=== PATIENT | male | born 1950 | race Caucasian/White ===

== ENCOUNTER 2017-08-18 11:23 | Emergency (ER) | payer MEDICARE ==
[~2017-08-18 11:23] MED LIST: Iopamidol 370 76% 100 ML VIAL ONE
[2017-08-18 11:57] LABS: #Basophils 0.1 thou/uL (0.0-0.2); #Eosinphils 0.2 thou/uL (0.0-0.7); #Neutrophils 6.7 thou/uL (1.40-6.50); %Basophils 1.2 % (0.0-1.0); %Eosinophils 2.8 % (0.0-10.0); %Lymphocytes 10.6 % (21.0-51.0); %Monocytes 10.9 % (0.0-10.0); %Neutrophils 74.5 % (42.0-75.0); Hemoglobin 14.3 g/dL (14.0-18.0); Mean Corpuscular HGB CONC 33.7 g/dL (32.0-36.0); Mean Corpuscular Hemoglobin 30.8 pg (27.0-31.0); Mean Corpuscular Volume 91.3 fl (80.0-94.0); Mean Platelet Volume 6.1 fL (7.4-10.4); Platelet Count 161 thou/uL (130-400); RBC Distribution Width 13.3 % (11.5-14.5); Red Blood Cell (RBC) Count 4.66 mill/uL (4.70-6.10)
[2017-08-18 12:06] LABS: INR-International Normal Ratio 1.2; PTT 30.2 SEC (22.9-36.1); Prothrombin Time 15.7 SEC (12.0-14.7)
[2017-08-18 12:16] LABS: ALT (SGPT) 65 U/L (8-55); AST (SGOT) 36 U/L (5-34); Albumin 3.6 g/dL (3.4-4.8); Alkaline Phosphatase 89 U/L (40-150); Anion Gap 14 mmol/L (10-20); BUN (Urea Nitrogen) 21 mg/dL (8.4-25.7); Bilirubin, Total 0.5 mg/dL (0.2-1.2); CK (CPK) 61 U/L (30-200); Calc. Creatinine Clearance 0 mL/min (70-130); Calcium 8.6 mg/dL (7.8-10.44); Carbon Dioxide 26 mmol/L (23-31); Chloride 108 mmol/L (98-107); Estimated GFR-MDRD 89; Glucose 87 mg/dL (80-115); Potassium 4.8 mmol/L (3.5-5.1); Protein, Total 5.6 g/dL (5.8-8.1); Sodium 143 mmol/L (136-145)
[2017-08-18 12:17] LABS: CKMB 2.3 ng/mL (0-6.6)
[2017-08-18 12:19] LABS: Troponin I 0.542 ng/mL (< 0.028)
--- NOTE | 2017-08-18 14:52 | RAD ---
TWO VIEWS CHEST: Date: 08-18-17 Provided Clinical History: Dyspnea. FINDINGS: Comparison is made with the study dated 05-27-17. The cardiac silhouette appears enlarged. Vascular calcification is noted involving the aortic arch. T here is a curvilinear metallic density overlying the expected location of the left atrium which is ne w with respect to the prior study and is of uncertain etiology. The lungs appear clear. There is blun ting of the right costophrenic angle without evidence for pleural fluid on the lateral view. IMPRESSION: Curvilinear metallic density overlies the expected region of the left atrium. The patient provides a history of recent heart surgery and this may be on the basis of that surgery. POS: RICKIE
--- NOTE | 2017-08-18 15:16 | CT ---
CTA THORAX WITH CONTRAST: (Computed Tomographic Angiography, chest(noncoronary) with contrast material, and image postprocessin g) (PE protocol) Date: 08-18-17 HISTORY: 66-year-old male with dyspnea. TECHNIQUE: IV injection of iodinated contrast: Isovue 370 Scan acquisition timing attempted to coincide with iodinated contrast bolus reaching maximal density in pulmonary arteries. 3D MIP reconstructions. FINDINGS: There are multiple tiny foci of gas in the subcutaneous fat superficial to the right anterolateral an d right lateral chest wall. In the soft tissues posterior to the right pectoralis major and minor mus cles, and lateral to the right rib cage, there is a 3.5 x 4 x 3.5 cm soft tissue attenuation mass, co nsistent with hematoma. There is surrounding fat stranding that represents edema. The edema extends t o the right intercostal muscles, which is contiguous with focal thickening of the right anterolateral pleura. The edema extends moderately large distances superiorly and inferiorly from this. There are numerous tiny foci of subcutaneous emphysema among the edema in the subcutaneous fat lateral to the r ight chest wall. There is cutaneous defect in the skin overlying the lower portion of the right later al chest wall. No displaced rib fracture is identified. There is a small right pleural effusion. Ther e is a rind of atelectatic lung abutting the posterior inferior pleural surface. There are mild strea ky densities at the lateral base of the right lung which could represent subsegmental atelectasis or scar. There is mild cardiomegaly with four chamber dilation, especially with dilation of the right at rium. Calcification of the coronary arteries, especially LAD. No thoracic aorta aneurysm or dissectio n. No evidence of pulmonary thromboembolism. No mediastinal lymphadenopathy. There is a metallic pros thetic ring at the mitral valve anulus. IMPRESSION: 1. Evidence of penetrating trauma to the right lateral chest wall. This includes subcutaneous emphyse ma, cutaneous defect, hematoma in the superficial soft tissues, and what appears to be a small right pleural hematoma. 2. No pulmonary thromboembolism. 3. Metallic, prosthetic mitral valve anulus. 4. Coronary arthrosclerotic disease. 5. Mild cardiomegaly, including right atrial chamber dilation. ADDENDUM: It has been learned that the patient has had recent surgery at the right chest wall, which would acco unt for all of the findings described above in that location. rajani POS: RICKIE
--- NOTE | 2017-09-06 12:54 | EKG ---
Test Reason : Blood Pressure : / mmHG Vent. Rate : 059 BPM Atrial Rate : 059 BPM P-R Int : 146 ms QRS Dur : 084 ms QT Int : 466 ms P-R-T Axes : 070 011 048 degrees QTc Int : 461 ms Sinus bradycardia with sinus arrhythmia Otherwise normal ECG Confirmed by LUIGI TAMEZ DO ([id number]), design editor KAYLIN MCLAUGHLIN ([id number]) on 09/06/2017 12:54:19 PM Referred By: DR. TAMEZ Confirmed By:LUIGI TAMEZ DO
== END 2017-08-18 13:23 | disposition home or self-care (01) ==
LOC: SCSER 11:23
DX: R06.00 Dyspnea, unspecified (principal); Z98.890 Other specified postprocedural states; I48.91 Unspecified atrial fibrillation; I49.9 Cardiac arrhythmia, unspecified; E78.5 Hyperlipidemia, unspecified; I10 Essential (primary) hypertension; Z79.899 Other long term (current) drug therapy; Z79.82 Long term (current) use of aspirin
CPT/HCPCS: 36415; 71046; 71275; 80053; 82550; 82553; 83605; 83880; 84484; 85025; 85610; 85730; 93005

== ENCOUNTER 2022-12-03 15:01 | Outpatient (CLI) | payer MEDICARE | END 2022-12-03 15:02 | disposition home or self-care (01) | LOC: SCSRAD 15:01 | PROVIDERS: ATTEND Family Medicine | DX: R06.02 Shortness of breath (principal); U07.1 COVID-19; R05.1 Acute cough | CPT/HCPCS: 71046; 87635 ==

== ENCOUNTER 2023-08-23 10:45 | Inpatient (IN) | payer MEDICARE ==
[2023-08-23] MEDS ORDERED: Iopamidol-370 76% 500 ML MDV (1 ML CHARGE) ONE (11:06)
[2023-08-23 11:31] LABS: #Basophils Less than 0.03 10x3/uL (0.0-0.2); #Eosinphils Less than 0.03 10x3/uL (0.0-0.7); %Basophils 0.2 % (0.0-1.0); %Lymphocytes 9.1 % (21.0-51.0); %Monocytes 10.4 % (0.0-10.0); Hematocrit 42.6 % (42.0-52.0); Hemoglobin 13.9 g/dL (14.0-18.0); Mean Corpuscular HGB CONC 32.6 g/dL (32.0-36.0); Mean Corpuscular Volume 95.1 fL (78.0-98.0); Mean Platelet Volume 10.5 fL (7.4-10.4); Platelet Count 127 10x3/uL (130-400); RBC Distribution Width 14.6 % (11.5-14.5); Red Blood Cell (RBC) Count 4.48 mill/uL (4.70-6.10)
[2023-08-23 11:36] LABS: Globulin 2.6 g/dL (2.4-3.5)
[2023-08-23 11:37] LABS: INR-International Normal Ratio 1.3; Prothrombin Time 15.9 sec (12.0-14.7)
[2023-08-23 11:38] LABS: PTT 29.4 sec (22.9-36.1)
[2023-08-23 11:39] LABS: D-Dimer Test 1.15 mcg/mL (0.27-0.43)
[2023-08-23 11:41] LABS: ALT (SGPT) 31 U/L (8-55); AST (SGOT) 17 U/L (5-34); Albumin 3.2 g/dL (3.4-4.8); Alkaline Phosphatase 91 U/L (40-110); Anion Gap 14 mmol/L (10-20); BUN (Urea Nitrogen) 23 mg/dL (8.4-25.7); Bilirubin, Total 1.5 mg/dL (0.2-1.2); Calc. Creatinine Clearance 0 mL/min (70-130); Calcium 8.8 mg/dL (7.8-10.44); Carbon Dioxide 25 mmol/L (23-31); Chloride 106 mmol/L (98-107); Estimated GFR 79; Glucose 129 mg/dL (83-110); Magnesium 2.1 mg/dL (1.6-2.6); Potassium 4.3 mmol/L (3.5-5.1); Protein, Total 5.8 g/dL (5.8-8.1); Sodium 141 mmol/L (136-145)
[2023-08-23 11:50] LABS: Actual Bicarbonate (HCO3v) 21.6 mEq/L (22-28); Analyzer IN Cardio ER; Calcium, Ionized (venous) 1.02 mmol/L (1.16-1.32); Chloride (VBG) 104 mmol/L (98-106); Hematocrit-VBG 42 % (42.0-52.0); Hemoglobin (Hb) 14.2 g/dL (12.6-17.4); Sodium 139 mmol/L (133-146); pH (venous) 7.473 (7.32-7.43)
[2023-08-23] MEDS ORDERED: Ipratropium/Albuterol 3 ML NEB ONE (11:53)
[2023-08-23] MEDS ORDERED: methylPREDNISolone Sod Succ/PF 125 MG/2 ML VIAL ONE (11:53)
[2023-08-23 12:48] LABS: Bacteria/HPF None Seen HPF (None Seen); Bilirubin Negative (Negative); Blood, Urine 2+ (Negative); CAUTI Indications for Culture Alt mental st,lethar; Clarity Clear (Clear); Glucose, Urine (Dipstick) Normal (Negative); Ketone, Urine Negative (Negative); Leukocyte Negative Leu/uL (Negative); Nitrite Negative (Negative); Protein, Urine (Dipstick) Negative (Neg-Trace); Squamous Epithelial 0-3 HPF (0-3); Urobilinogen Normal mg/dL (Less than 2); WBC/HPF 0-3 HPF (0-3)
[2023-08-23 12:50] LABS: Urine Culture Reflex No No
[2023-08-23] MEDS ORDERED: Furosemide 40 MG (4 mL) VIAL ONE (13:13)
[2023-08-23] MEDS ORDERED: Ondansetron PF 4 MG/2 ML Vial IVP PRN (15:23)
[2023-08-23] MEDS ORDERED: Ondansetron ODT 4 MG TAB PO PRN (15:23)
[2023-08-23] MEDS ORDERED: Acetaminophen 325 MG TAB PO PRN (15:23)
[2023-08-23] MEDS ORDERED: Albuterol 200 PUFF INH INH PRN (15:38)
[2023-08-23 16:30] VITALS: BMI 34.2
[2023-08-23 18:13] LABS: Magnesium 2.2 mg/dL (1.6-2.6)
[2023-08-23] MEDS: Magnesium Oxide 250 MG TAB PO SCH (20:08)
[2023-08-24 04:01] LABS: #Basophils Less than 0.03 10x3/uL (0.0-0.2); #Eosinphils Less than 0.03 10x3/uL (0.0-0.7); %Basophils 0.1 % (0.0-1.0); %Lymphocytes 6.3 % (21.0-51.0); %Monocytes 5.1 % (0.0-10.0); %Neutrophils 88.1 % (42.0-75.0); Hematocrit 42.5 % (42.0-52.0); Hemoglobin 13.8 g/dL (14.0-18.0); Mean Corpuscular HGB CONC 32.5 g/dL (32.0-36.0); Mean Corpuscular Hemoglobin 31.4 pg (27.0-31.0); Mean Corpuscular Volume 96.8 fL (78.0-98.0); Mean Platelet Volume 10.7 fL (7.4-10.4); Platelet Count 137 10x3/uL (130-400); RBC Distribution Width 14.5 % (11.5-14.5); Red Blood Cell (RBC) Count 4.39 mill/uL (4.70-6.10)
[2023-08-24 04:32] LABS: Globulin 3.5 g/dL (2.4-3.5)
[2023-08-24 04:41] LABS: ALT (SGPT) 28 U/L (8-55); AST (SGOT) 31 U/L (5-34); Alkaline Phosphatase 89 U/L (40-110); Anion Gap 14 mmol/L (10-20); BUN (Urea Nitrogen) 22 mg/dL (8.4-25.7); Bilirubin, Total 1.6 mg/dL (0.2-1.2); Calc. Creatinine Clearance 103 mL/min (70-130); Calcium 8.9 mg/dL (7.8-10.44); Carbon Dioxide 25 mmol/L (23-31); Chloride 105 mmol/L (98-107); Estimated GFR 73; Glucose 141 mg/dL (83-110); Potassium 4.4 mmol/L (3.5-5.1); Protein, Total 6.5 g/dL (5.8-8.1); Sodium 140 mmol/L (136-145)
[2023-08-24] MEDS: Furosemide 40 MG (4 mL) VIAL SLOW IVP SCH ×2 (05:08→14:24)
[2023-08-24] MEDS: Enoxaparin 40 MG (0.4 mL) SYRINGE SC SCH (08:58)
[2023-08-24] MEDS: Atorvastatin Calcium 40 MG TAB PO SCH (08:59)
[2023-08-24] MEDS: Pantoprazole DR 40 MG TAB PO SCH (08:59)
[2023-08-24] MEDS: Aspirin 81 mg Enteric Coated Tablet PO SCH (08:59)
[2023-08-24] MEDS: Multivitamin W/ Minerals 1 TAB PO SCH (08:59)
[2023-08-24] MEDS: Allopurinol 300 MG TAB PO SCH (08:59)
[2023-08-24] MEDS: Senokot S 8.6-50 MG TAB PO PRN (14:28)
[2023-08-24] MEDS: Amiodarone 450 MG in Dextrose 5% in Water 250 ML IVPB SCH (15:53)
[2023-08-25 04:16] LABS: #Basophils Less than 0.03 10x3/uL (0.0-0.2); #Eosinphils Less than 0.03 10x3/uL (0.0-0.7); %Basophils 0.1 % (0.0-1.0); %Eosinophils 0.1 % (0.0-10.0); %Lymphocytes 10.5 % (21.0-51.0); %Monocytes 8.3 % (0.0-10.0); %Neutrophils 80.6 % (42.0-75.0); Hematocrit 44.9 % (42.0-52.0); Hemoglobin 14.4 g/dL (14.0-18.0); Mean Corpuscular HGB CONC 32.1 g/dL (32.0-36.0); Mean Corpuscular Hemoglobin 31.6 pg (27.0-31.0); Mean Corpuscular Volume 98.7 fL (78.0-98.0); Mean Platelet Volume 11.3 fL (7.4-10.4); Platelet Count 174 10x3/uL (130-400); RBC Distribution Width 14.7 % (11.5-14.5); Red Blood Cell (RBC) Count 4.55 mill/uL (4.70-6.10)
[2023-08-25 04:39] LABS: Anion Gap 15 mmol/L (10-20); BUN (Urea Nitrogen) 30 mg/dL (8.4-25.7); Calc. Creatinine Clearance 110 mL/min (70-130); Carbon Dioxide 31 mmol/L (23-31); Chloride 101 mmol/L (98-107); Estimated GFR 80; Glucose 98 mg/dL (83-110); Sodium 143 mmol/L (136-145)
[2023-08-26 04:35] LABS: #Basophils Less than 0.03 10x3/uL (0.0-0.2); %Basophils 0.1 % (0.0-1.0); %Eosinophils 1.4 % (0.0-10.0); %Lymphocytes 13.8 % (21.0-51.0); %Monocytes 10.9 % (0.0-10.0); %Neutrophils 73.4 % (42.0-75.0); Hematocrit 45.8 % (42.0-52.0); Hemoglobin 14.7 g/dL (14.0-18.0); Mean Corpuscular HGB CONC 32.1 g/dL (32.0-36.0); Mean Corpuscular Hemoglobin 31.3 pg (27.0-31.0); Mean Corpuscular Volume 97.4 fL (78.0-98.0); Mean Platelet Volume 10.1 fL (7.4-10.4); Platelet Count 176 10x3/uL (130-400); RBC Distribution Width 14.5 % (11.5-14.5)
[2023-08-26 05:02] LABS: Anion Gap 16 mmol/L (10-20); BUN (Urea Nitrogen) 31 mg/dL (8.4-25.7); Calc. Creatinine Clearance 119 mL/min (70-130); Calcium 8.9 mg/dL (7.8-10.44); Carbon Dioxide 31 mmol/L (23-31); Chloride 101 mmol/L (98-107); Estimated GFR 90; Glucose 98 mg/dL (83-110); Potassium 3.6 mmol/L (3.5-5.1); Sodium 144 mmol/L (136-145)
[2023-08-27 08:45] LABS: Anion Gap 18 mmol/L (10-20); BUN (Urea Nitrogen) 28 mg/dL (8.4-25.7); Calc. Creatinine Clearance 122 mL/min (70-130); Calcium 9.1 mg/dL (7.8-10.44); Carbon Dioxide 32 mmol/L (23-31); Chloride 98 mmol/L (98-107); Estimated GFR 91; Glucose 94 mg/dL (83-110); Potassium 3.5 mmol/L (3.5-5.1); Sodium 144 mmol/L (136-145)
[2023-08-27 09:33] LABS: #Basophils Less than 0.03 10x3/uL (0.0-0.2); %Basophils 0.2 % (0.0-1.0); %Eosinophils 1.4 % (0.0-10.0); %Lymphocytes 12.3 % (21.0-51.0); %Monocytes 10.1 % (0.0-10.0); %Neutrophils 75.8 % (42.0-75.0); Hematocrit 48.7 % (42.0-52.0); Hemoglobin 15.2 g/dL (14.0-18.0); Mean Corpuscular HGB CONC 31.2 g/dL (32.0-36.0); Mean Corpuscular Hemoglobin 30.3 pg (27.0-31.0); Mean Platelet Volume 10.5 fL (7.4-10.4); Platelet Count 164 10x3/uL (130-400); RBC Distribution Width 14.5 % (11.5-14.5); Red Blood Cell (RBC) Count 5.02 mill/uL (4.70-6.10)
[2023-08-27] MEDS: Amiodarone 200 MG TAB PO SCH (19:58)
[2023-08-28 04:51] LABS: #Basophils Less than 0.03 10x3/uL (0.0-0.2); %Basophils 0.2 % (0.0-1.0); %Eosinophils 0.7 % (0.0-10.0); %Lymphocytes 12.3 % (21.0-51.0); %Monocytes 10.9 % (0.0-10.0); %Neutrophils 75.5 % (42.0-75.0); Hematocrit 46.3 % (42.0-52.0); Hemoglobin 14.8 g/dL (14.0-18.0); Mean Corpuscular Hemoglobin 30.6 pg (27.0-31.0); Mean Corpuscular Volume 95.7 fL (78.0-98.0); Mean Platelet Volume 9.6 fL (7.4-10.4); Platelet Count 187 10x3/uL (130-400); RBC Distribution Width 13.9 % (11.5-14.5); Red Blood Cell (RBC) Count 4.84 mill/uL (4.70-6.10)
[2023-08-28 05:08] LABS: Anion Gap 17 mmol/L (10-20); BUN (Urea Nitrogen) 23 mg/dL (8.4-25.7); Calc. Creatinine Clearance 136 mL/min (70-130); Calcium 8.8 mg/dL (7.8-10.44); Carbon Dioxide 30 mmol/L (23-31); Chloride 98 mmol/L (98-107); Estimated GFR 94; Glucose 112 mg/dL (83-110); Potassium 3.2 mmol/L (3.5-5.1); Sodium 142 mmol/L (136-145)
[2023-08-28] MEDS: Potassium Chloride 20 MEQ TAB PO SCH (06:28)
[2023-08-28] MEDS: Potassium Chloride 20 MEQ in Premix 1 BAG IVPB SCH (06:28)
[2023-08-28 06:50] LABS: Magnesium 2.2 mg/dL (1.6-2.6)
[2023-08-28] MEDS: Empagliflozin 10 MG TAB PO SCH (08:16)
[2023-08-28 11:05] LABS: Anion Gap 12 mmol/L (10-20); BUN (Urea Nitrogen) 24 mg/dL (8.4-25.7); Calc. Creatinine Clearance 118 mL/min (70-130); Calcium 9.2 mg/dL (7.8-10.44); Carbon Dioxide 32 mmol/L (23-31); Chloride 100 mmol/L (98-107); Estimated GFR 91; Glucose 131 mg/dL (83-110); Potassium 3.9 mmol/L (3.5-5.1); Sodium 140 mmol/L (136-145)
[2023-08-29 04:07] LABS: #Basophils Less than 0.03 10x3/uL (0.0-0.2); %Basophils 0.2 % (0.0-1.0); %Eosinophils 1.4 % (0.0-10.0); %Lymphocytes 13.3 % (21.0-51.0); %Monocytes 10.2 % (0.0-10.0); %Neutrophils 74.4 % (42.0-75.0); Hematocrit 45.8 % (42.0-52.0); Hemoglobin 14.6 g/dL (14.0-18.0); Mean Corpuscular HGB CONC 31.9 g/dL (32.0-36.0); Mean Corpuscular Hemoglobin 30.1 pg (27.0-31.0); Mean Corpuscular Volume 94.4 fL (78.0-98.0); Mean Platelet Volume 9.8 fL (7.4-10.4); Platelet Count 185 10x3/uL (130-400); RBC Distribution Width 13.9 % (11.5-14.5); Red Blood Cell (RBC) Count 4.85 mill/uL (4.70-6.10)
[2023-08-29 04:24] LABS: Anion Gap 16 mmol/L (10-20); BUN (Urea Nitrogen) 26 mg/dL (8.4-25.7); Calc. Creatinine Clearance 121 mL/min (70-130); Calcium 8.9 mg/dL (7.8-10.44); Carbon Dioxide 30 mmol/L (23-31); Chloride 102 mmol/L (98-107); Estimated GFR 92; Glucose 102 mg/dL (83-110); Magnesium 2.3 mg/dL (1.6-2.6); Potassium 3.6 mmol/L (3.5-5.1); Sodium 144 mmol/L (136-145)
[2023-08-29] MEDS: Furosemide 40 MG TAB PO SCH (08:47)
[2023-08-29] MEDS ORDERED: PROPOFOL 200 MG/20 ML VIAL ONE (09:37)
[2023-08-30 05:19] LABS: Magnesium 2.5 mg/dL (1.6-2.6)
[2023-08-30 08:40] VITALS: TEMP 98.1
[2023-08-30] MEDS: Multivit, Therapeutic 1 TAB PO SCH (10:15)
[2023-08-30 12:25] VITALS: BP 165/104
== END 2023-08-30 14:48 | disposition home or self-care (01) | DRG 291 ==
LOC: ERS 10:45 → 2SW 15:53 → OBSVTOIN 08-25 09:48
PROVIDERS: ADMIT Internal Medicine; ATTEND Internal Medicine
PROC: 5A2204Z Restoration of Cardiac Rhythm, Single (ICD-10-PCS; principal; 2023-08-29)
DX: I11.0 Hypertensive heart disease with heart failure (principal); I50.33 Acute on chronic diastolic (congestive) heart failure; J96.01 Acute respiratory failure with hypoxia; I48.0 Paroxysmal atrial fibrillation; M10.9 Gout, unspecified; I25.10 Atherosclerotic heart disease of native coronary artery without angina pectoris; E66.9 Obesity, unspecified; G47.33 Obstructive sleep apnea (adult) (pediatric); E88.09 Other disorders of plasma-protein metabolism, not elsewhere classified; Z98.890 Other specified postprocedural states; Z88.2 Allergy status to sulfonamides; Z79.899 Other long term (current) drug therapy; Z68.33 Body mass index [BMI] 33.0-33.9, adult
CPT/HCPCS: 36415; 71045; 71275; 80048; 80053; 81001; 82805; 83735; 83880; 84443; 85025; 85379; 85610; 85730; 93005; 93010; 93306; 94760; 96374; 96375; J0282; J1650; J1940; J2704; J2930; J3480; J7070; J7620; Q9967

== ENCOUNTER 2023-09-19 16:00 | Outpatient (CLI) | payer OTHER | END 2023-09-19 16:01 | disposition home or self-care (01) | LOC: SLEEPLAB 16:00 | PROVIDERS: ATTEND Internal Medicine | DX: R06.02 Shortness of breath (principal); G47.33 Obstructive sleep apnea (adult) (pediatric); R09.02 Hypoxemia | CPT/HCPCS: 95800 ==

== ENCOUNTER 2023-10-30 16:00 | Outpatient (CLI) | payer MEDICARE | END 2023-10-30 16:01 | disposition home or self-care (01) | LOC: SLEEPLAB 16:00 | PROVIDERS: ATTEND Internal Medicine | DX: G47.33 Obstructive sleep apnea (adult) (pediatric) (principal); R09.02 Hypoxemia | CPT/HCPCS: 95811 ==

== ENCOUNTER 2024-02-04 08:00 | Day surgery (SDC) | payer MEDICARE ==
[2024-02-03 12:22] VITALS: BMI 32.5
[2024-02-04] MEDS ORDERED: PROPOFOL 80 ML ONE (09:01)
[2024-02-04] MEDS ORDERED: Lidocaine 2% PF 5 ML VIAL ONE (09:01)
[2024-02-04] MEDS ORDERED: GLYCOPYRROLATE/PF 0.2 MG/ML VIAL ONE (09:07)
[2024-02-04] MEDS ORDERED: PHENYLEPHRINE-NS 100 MCG/ML 10 ML SYRINGE ONE (09:40)
== END 2024-02-04 10:40 | disposition home or self-care (01) ==
LOC: SDC 08:00
PROVIDERS: ATTEND Internal Medicine Gastroenterology
PROC: 0DJD8ZZ Inspection of Lower Intestinal Tract, Via Natural or Artificial Opening Endoscopic (ICD-10-PCS; principal; 2024-02-04)
PROC: 0DJ08ZZ Inspection of Upper Intestinal Tract, Via Natural or Artificial Opening Endoscopic (ICD-10-PCS; 2024-02-04)
PROC: 0D750ZZ Dilation of Esophagus, Open Approach (ICD-10-PCS; 2024-02-04)
DX: Z12.11 Encounter for screening for malignant neoplasm of colon (principal); R13.19 Other dysphagia; Z86.0100 Personal history of colon polyps, unspecified; K57.30 Diverticulosis of large intestine without perforation or abscess without bleeding; K21.9 Gastro-esophageal reflux disease without esophagitis; I10 Essential (primary) hypertension; E78.00 Pure hypercholesterolemia, unspecified; J45.909 Unspecified asthma, uncomplicated; I48.91 Unspecified atrial fibrillation; Z79.82 Long term (current) use of aspirin; Z79.899 Other long term (current) drug therapy
CPT/HCPCS: 43235; 43450; G0105; J2704; J3490

== ENCOUNTER 2024-02-11 11:07 | Outpatient (CLI) | payer MEDICARE | END 2024-02-11 11:08 | disposition home or self-care (01) | LOC: RAD 11:07 | PROVIDERS: ATTEND Internal Medicine Gastroenterology | DX: R13.19 Other dysphagia (principal); K21.9 Gastro-esophageal reflux disease without esophagitis; I48.91 Unspecified atrial fibrillation; R06.02 Shortness of breath; Z86.0100 Personal history of colon polyps, unspecified | CPT/HCPCS: 74230 ==

== ENCOUNTER 2024-02-17 09:06 | Outpatient (CLI) | payer MEDICARE | END 2024-02-17 09:07 | disposition home or self-care (01) | LOC: RAD 09:06 | PROVIDERS: ATTEND Internal Medicine | DX: R06.00 Dyspnea, unspecified (principal) | CPT/HCPCS: 71046 ==

== ENCOUNTER 2025-03-11 14:00 | Inpatient (IN) | payer MEDICARE ==
[2025-03-16] MEDS ORDERED: Heparin 5,000 UNITS/ML VIAL ONE (06:35)
[2025-03-16] MEDS ORDERED: fentaNYL PF 100 MCG/2 ML SYRINGE ONE (07:23)
[2025-03-16] MEDS ORDERED: Ondansetron PF 4 MG/2 ML Vial ONE ×2 (07:24→10:17)
[2025-03-16] MEDS ORDERED: Lidocaine 1% PF 5 ML VIAL ONE (07:24)
[2025-03-16] MEDS ORDERED: Heparin 10,000 UNITS/ 10 ML VIAL ONE (08:13)
[2025-03-16] MEDS ORDERED: PHENYLEPHRINE-NS 100 MCG/ML 10 ML SYRINGE ONE (08:13)
[2025-03-16] MEDS ORDERED: SUGAMMADEX SODIUM 200 MG/2 ML VIAL ONE ×2 (08:55→08:59)
[2025-03-16] MEDS ORDERED: Nitroglycerin 50 MG/250 ML BOT 250 ML IVPB PRN (08:59)
[2025-03-16] MEDS ORDERED: hydrALAZINE 20 MG/ML VIAL SLOW IVP PRN (08:59)
[2025-03-16] MEDS ORDERED: Phenylephrine 40 MG/NS 250 ML 250 ML IVPB PRN (08:59)
[2025-03-16] MEDS ORDERED: Ondansetron PF 4 MG/2 ML Vial IVP PRN (08:59)
[2025-03-16] MEDS ORDERED: Acetaminophen 325 MG TAB PO PRN (08:59)
[2025-03-16] MEDS ORDERED: hydrALAZINE 20 MG/ML VIAL ONE (09:39)
[2025-03-16 14:30] VITALS: BMI 34.5
[2025-03-17 04:36] VITALS: TEMP 98
== END 2025-03-17 10:00 | disposition home or self-care (01) | DRG 39 ==
LOC: SURG A 03-16 06:02 → CCU 03-16 13:07
PROVIDERS: ADMIT Thoracic Surgery (Cardiothoracic Vascular Surgery); ATTEND Thoracic Surgery (Cardiothoracic Vascular Surgery)
PROC: 03CL0ZZ Extirpation of Matter from Left Internal Carotid Artery, Open Approach (ICD-10-PCS; principal; 2025-03-16)
PROC: 3E03329 Introduction of Other Anti-infective into Peripheral Vein, Percutaneous Approach (ICD-10-PCS; 2025-03-17)
DX: I65.22 Occlusion and stenosis of left carotid artery (principal); Z88.2 Allergy status to sulfonamides; Z91.048 Other nonmedicinal substance allergy status; Z95.1 Presence of aortocoronary bypass graft; Z98.1 Arthrodesis status; Z98.890 Other specified postprocedural states; Z95.9 Presence of cardiac and vascular implant and graft, unspecified; J45.909 Unspecified asthma, uncomplicated; I10 Essential (primary) hypertension; E78.5 Hyperlipidemia, unspecified; K21.9 Gastro-esophageal reflux disease without esophagitis; I48.91 Unspecified atrial fibrillation; Z96.653 Presence of artificial knee joint, bilateral; Z95.0 Presence of cardiac pacemaker; M10.9 Gout, unspecified; G47.33 Obstructive sleep apnea (adult) (pediatric); Z79.82 Long term (current) use of aspirin; Z79.899 Other long term (current) drug therapy
CPT/HCPCS: 94640; J0169; J0360; J1644; J2405; J2720; J3010; J7030

== ENCOUNTER 2025-03-11 14:02 | Outpatient (CLI) | payer MEDICARE ==
[2025-03-11 16:30] LABS: #Basophils 0.03 10x3/uL (0.0-0.2); #Eosinophils 0.18 10x3/uL (0.0-0.7); #Monocytes 0.63 10x3/uL (0.11-0.59); #Neutrophils 5.19 10x3/uL (1.40-6.50); %Basophils 0.4 % (0.0-1.0); %Eosinophils 2.6 % (0.0-10.0); %Lymphocytes 11.9 % (21.0-51.0); %Monocytes 9.2 % (0.0-10.0); %Neutrophils 75.6 % (42.0-75.0); Hematocrit 48.2 % (42.0-52.0); Hemoglobin 15.0 g/dL (14.0-18.0); Mean Corpuscular Hemoglobin 29.9 pg (27.0-31.0); Mean Corpuscular Volume 96.0 fL (78.0-98.0); Platelet Count 147 10x3/uL (130-400); Red Blood Cell (RBC) Count 5.02 mill/uL (4.70-6.10); White Blood Cell (WBC) Count 6.87 10x3/uL (4.8-10.8)
[2025-03-11 16:44] LABS: Anion Gap 15 mmol/L (10-20); BUN (Urea Nitrogen) 19 mg/dL (8.4-25.7); Calc. Creatinine Clearance 0 mL/min (70-130); Calcium 9.2 mg/dL (7.8-10.44); Carbon Dioxide 29 mmol/L (23-31); Chloride 106 mmol/L (98-107); Glucose 87 mg/dL (83-110); Potassium 4.6 mmol/L (3.5-5.1); Sodium 145 mmol/L (136-145)
== END 2025-03-11 14:03 | disposition home or self-care (01) ==
LOC: LABBT 14:02
PROVIDERS: ATTEND Thoracic Surgery (Cardiothoracic Vascular Surgery)
DX: Z01.818 Encounter for other preprocedural examination (principal); I65.22 Occlusion and stenosis of left carotid artery
CPT/HCPCS: 80048; 85025; 93005; 93010